=== PATIENT | female | born 1980 ===

== ENCOUNTER → 2018-03-26 21:07 | Outpatient (REF) | payer OTHER, SELFPAY ==
[2018-03-26 22:06] LABS: Add Manual Diff / Slide Review NO; Basophils Percent Auto 0.8 % (0-2); Eosinophils Percent Auto 2.3 % (2-4); Hematocrit 40.3 % (36-46); Hemoglobin 13.4 g/dL (12.0-16.0); Lymphocytes Percent Auto 38.9 % (25-40); Mean Corpuscular HGB Conc 33.3 % (30-36); Mean Corpuscular Hemoglobin 29.6 PG (26-34); Mean Corpuscular Volume 88.9 fL (80-100); Monocytes Percent Auto 6.3 % (3-14); Neutrophils Absolute Auto 2300 /uL (1500-7000); Neutrophils Percent Auto 51.7 % (50-75); Platelet Count 156 X10^3/uL (150-400); Red Blood Cell Count 4.53 X10^6/uL (4.0-5.2); Red Cell Distribution Width 13.8 % (11.6-14.8); White Blood Cell Count 4.5 X10^3/uL (4.5-11.0)
[2018-03-26 22:17] LABS: Alanine Aminotransferase 21 IU/L (9-52); Albumin 4.3 g/dL (3.5-5.0); Albumin Globulin Ratio 1.6 (1.0-2.8); Alkaline Phosphatase 44 U/L (38-126); Aspartate Aminotransferase 21 IU/L (14-36); BUN Creatinine Ratio 17.5 (6-22); Bilirubin Total 0.3 mg/dL (0.2-1.3); Blood Urea Nitrogen 14 mg/dL (7-17); Calcium 9.1 mg/dL (8.4-10.2); Carbon Dioxide 27 mmol/L (22-32); Chloride 103 mmol/L (98-107); Estimated Glomerular Filt Rate > 60.0 mL/min (>60); Globulin 2.7 g/dL (1.7-4.1); Glucose 101 mg/dL (70-100); HEMOLYSIS < 15 (0-50); Potassium 4.1 mmol/L (3.4-5.1); Sodium 140 mmol/L (137-145)
[2018-04-01 04:31] LABS: Testosterone Free 3.2 pg/mL (0.1-6.4); Testosterone Total 42 ng/dL (2-45)
== END ==
LOC: LAB 21:07
PROVIDERS: Visit Provider Naturopath
DX: E28.9 Ovarian dysfunction, unspecified (principal); R68.82 Decreased libido; R53.83 Other fatigue
CPT/HCPCS: 36415; 80053; 82672; 84402; 84403; 85025

== ENCOUNTER → 2018-05-28 21:10 | Outpatient (REF) | payer OTHER, SELFPAY ==
[2018-05-29 06:36] LABS: Specimen Label INREACH
== END ==
LOC: LAB 21:10
PROVIDERS: Visit Provider Naturopath
DX: R53.83 Other fatigue (principal)
CPT/HCPCS: 36415